=== PATIENT | female | born 1995 | race Caucasian/White ===

== ENCOUNTER 2025-05-23 05:23 | Inpatient (IN) ==
--- NOTE | 2025-05-14 16:28 | Anesthesiology Consultation ---
Date of Service May 14, 2025 Assessment & Plan (1) Encounter for pre-operative examination: - Patient reported cardiac murmur. No notation of cardiac evaluation from recent OB and endocrinology office notes. No available maternal echo. Case discussed in detail with Dr. Guy who advised patient can proceed as planned and nothing additional is needed prior to surgery pending assigned anesthesiologist qamar CALLOWAY. - h/o spinal tap headache requiring blood patch which was not beneficial after neuraxial anesthesia [place] [facility] [place]. - cardio notation 02/25/25: "...baby's heart appears normal...do not see any contraindication from a cardiac standpoint to her delivering at [facility]..." - Per territory development manager on 05/14/25: No known infectious disease contacts, current infectious disease symptoms in past 10 days or COVID positive test result in the past 30 days. Chart Review Chart Review: lead data entry operator initiated History Surgery Operation Date: 05/23/25 09:00 Proposed Procedures p Section (Delivery of Baby Through Abdominal Incision) - Rebecca rooney MD, FACOG s with Bilateral Tubal Ligation - Rebecca Cannon MD, FACOG Height/Weight Height: 5 ft 10 in Weight: 141.974 kg Allergies Allergy/AdvReac Type Severity Reaction Status Date / Time No Known Allergies Allergy Verified 05/14/25 15:47 Medications Home Medications Medication Instructions Recorded Confirmed Last Taken OneTouch Delica Plus Lancet 33 #400 ea 02/15/24 05/13/25 Unknown gauge (lancets) OneTouch Ultra Test (blood sugar #400 ea 02/15/24 05/13/25 Unknown diagnostic) pen needle, diabetic 32 gauge x #1,200 ea 07/12/24 05/13/25 Unknown 5/32" (1st Tier Unifine Pentips) blood-glucose sensor (Dexcom G7 #3 ea 07/15/24 05/13/25 Unknown Sensor device) prenat.vits,beverly,rvh-fclu-lieeu 1 tab PO DAILY 10/29/24 05/14/25 Unknown metformin 500 mg tablet,extended 1,000 mg (2 x 500 mg) PO BID #120 12/27/24 05/14/25 Unknown release 24 hr tabs aspirin 81 mg tablet 81 mg PO DAILY 05/14/25 05/14/25 Unknown famotidine 20 mg tablet (Pepcid) 20 mg PO DAILY 05/14/25 05/14/25 Unknown insulin glargine U-300 conc 300 160 unit subcut HS 05/14/25 05/14/25 Unknown unit/mL (3 mL) subcutaneous pen (Toujeo Max U-300 SoloStar) insulin lispro 200 unit/mL (3 mL) 100 - 120 unit subcut .WITH MEALS 05/14/25 05/14/25 Unknown subcutaneous pen (Humalog KwikPen U-200 Insulin) iron 1 tab PO Q2D 05/14/25 05/14/25 Unknown levothyroxine 200 mcg tablet 200 mcg PO QAM 05/14/25 05/14/25 Unknown (Synthroid) levothyroxine 50 mcg tablet 50 mcg PO QAM 05/14/25 05/14/25 Unknown (Synthroid) Past Medical History Medical History (Updated 05/14/25 @ 16:27 by Minerva Reinoso PA-C) Adverse effect of anesthesia 2020 - spinal headache, had a blood patch which failed - as per patient - [place] [facility] [place] Chronic hypertension with superimposed pre-eclampsia hx Diabetes mellitus, type 2 IDDM/Oral - [facility] GBS carrier Heart murmur History of chicken pox Hypothyroidism Insulin controlled gestational diabetes mellitus (GDM) during Mild preeclampsia hx Past Family History Family History Father Hypertension Mother Thyroid disease Denies family history of Ovarian cancer Breast cancer Colorectal cancer Past Surgical History Surgical History S/P carpal tunnel release Left S/P section Twins 2020 S/P wisdom tooth extraction Social History Smoking Status: Never smoker Do You Dip or Chew Tobacco: No Hx Alcohol Use: No Hx Substance Use: No substance use type: does not use Lab Results Anesthesia Preop Results Results Anesthesia Widget: WBC 10.21 K/ul (4.8-10.8) 05/13/25 Hgb 10.3 g/dl (12.0-16.0) L 05/13/25 Hct 32.3 % (37.0-47.0) L 05/13/25 Plt 286 K/uL (130-400) 05/13/25 Na 139 mmol/L (136-145) 05/13/25 K 3.7 mmol/L (3.5-5.1) 05/13/25 Cl 107 mmol/L (98-107) 05/13/25 CO2 22 mmol/L (21-32) 05/13/25 BUN 7 mg/dl (6-23) 05/13/25 Creat 0.65 mg/dl (0.6-1.2) 05/13/25 Glucose Level 70 mg/dl (70-99(Fasting)) 05/13/25 TSH 1.006 uIu/ml (0.300-4.500) 03/20/25 HA1c 5.4 % (4.5-5.6) 05/02/25 Urine Color Yellow 03/20/25 Urine Appearance Clear (Clear) 03/20/25 Urine pH 6.5 (4.5-7.5) 03/20/25 Urine Specific [place] 1.010 (1.000-1.030) 03/20/25 Urine Protein Negative (Negative) 03/20/25 Urine Glucose (UA) Negative (Negative) 03/20/25 Urine Ketones Negative (Negative) 03/20/25 Urine Blood Negative (Negative) 03/20/25 Urine Nitrite Negative (Negative) 03/20/25 Urine Bilirubin Negative (Negative) 03/20/25 Urine Urobilinogen Negative (Negative) 03/20/25 Urine Leukocyte Esterase Negative (Negative) 03/20/25 Testing Electrocardiogram Date: 11/25/24 NSR, rate 72 bpm Rightward axis
--- NOTE | 2025-05-22 22:47 | History & Physical Report ---
Date of Service May 22, 2025 Assessment & Plan (1) 38 weeks gestation of : (2) Previous delivery affecting , antepartum: (3) Chronic hypertension affecting : (4) Obesity affecting , antepartum: (5) Diabetes in : (6) Encounter for sterilization: Plan Will plan repeat c/s with tubal on day of admission. Consent reviewed and signed. Distal salpingectomies planned. Labs on day of admission. Plan dose 1/2 normal NPH bedtime dosing and npo after midnight. Routine pre, and postop care reviewed. History of Present Illness Chief Complaint: planned c/s and tubal. Primary Care Provider: Patrica Carrera PA-C 29yo (twins) at 38+wks ega for planned c/s and desires tubal with h/o CHTN and DM in . Denies rom, vb. +FM. No ctx. PNC c/b 1. Type 2 DM, normal growth u/s and testing, on insulin/metformin 2. CHTN, no meds 3. Hypothyroidism 4. Obesity 5. GBS carrier 6. Prior complicated by Preeclampsia 7. Polyhydramnios PNL rhpos, ri, gbs pos OBH: c/s x 3, twins were at 34wks/preeclampsia GYNH: nl paps, no stds Allergies Allergy/AdvReac Type Severity Reaction Status Date / Time No Known Allergies Allergy Verified 05/22/25 13:24 Home Medications Medication Instructions Recorded Confirmed Type OneTouch Delica Plus Lancet 33 #400 ea 02/15/24 05/22/25 Rx gauge (lancets) OneTouch Ultra Test (blood sugar #400 ea 02/15/24 05/22/25 Rx diagnostic) pen needle, diabetic 32 gauge x #1,200 ea 07/12/24 05/22/25 Rx 5/32" (1st Tier Unifine Pentips) blood-glucose sensor (Dexcom G7 #3 ea 07/15/24 05/22/25 Rx Sensor device) prenat.vits,beverly,xur-vxdq-ywcyj 1 tab PO DAILY 10/29/24 05/22/25 History metformin 500 mg tablet,extended 1,000 mg (2 x 500 mg) PO BID #120 12/27/24 Rx release 24 hr tabs aspirin 81 mg tablet 81 mg PO DAILY 05/14/25 05/22/25 History famotidine 20 mg tablet (Pepcid) 20 mg PO DAILY 05/14/25 05/22/25 History insulin glargine U-300 conc 300 160 unit subcut HS 05/14/25 05/22/25 History unit/mL (3 mL) subcutaneous pen (Toujeo Max U-300 SoloStar) insulin lispro 200 unit/mL (3 mL) 100 - 120 unit subcut .WITH MEALS 05/14/25 05/22/25 History subcutaneous pen (Humalog KwikPen U-200 Insulin) iron 1 tab PO Q2D 05/14/25 05/22/25 History levothyroxine 200 mcg tablet 200 mcg PO QAM 05/14/25 05/22/25 History (Synthroid) levothyroxine 50 mcg tablet 50 mcg PO QAM 05/14/25 05/22/25 History (Synthroid) Patient History Medical History (Updated 05/22/25 @ 22:53 by Rebecca Cannon MD, FACOG) Adverse effect of anesthesia 2020 - spinal headache, had a blood patch which failed - as per patient - [place] at [facility] [place] GBS carrier Heart murmur patient reports echo was done 5-7 years ago and was "normal" states murmur has not been heard for years Hypothyroidism Diabetes mellitus, type 2 IDDM/Oral - [facility] Chronic hypertension with superimposed pre-eclampsia hx Mild preeclampsia hx Insulin controlled gestational diabetes mellitus (GDM) during History of chicken pox Surgical History S/P carpal tunnel release Left S/P wisdom tooth extraction S/P section Twins 2020 Family History Father Hypertension Mother Thyroid disease Denies family history of Ovarian cancer Breast cancer Colorectal cancer Social History (Updated 10/29/24 @ 13:41 by Yoanna Mcbride) Smoking Status: Never smoker Second Hand Exposure: No; Do You Dip or Chew Tobacco: No; Hx Alcohol Use: No Hx Substance Use: No Preferred Language: Cymro Communication Ability: Effective Software Sales Executive Required: No Beliefs That Will Affect Care: None marital status: Single marital status details: Ray Dunkle [phone] Current Living Situation: Family Current Living Situation Comment: Lives with S.O., 3 children current occupational status: employed current occupation: [employer] Feels Safe at Home: Yes Assistive Devices: Other Review of Systems as per Subjective / HPI Physical Exam Constitutional: WD/WN, vitals as above Respiratory: normal respiratory effort, lungs clear to auscultation Cardiovascular: Rate/Rhythm: regular rate and regular rhythm Gastrointestinal (Abdomen): soft gravid nt obese nst reactive Musculoskeletal: tr edema nontender calves Neurologic: grossly normal Psychiatric: A+Ox3, euthymic affect Coding Level of Care Code None Diagnoses 38 weeks gestation of Z3A.38 Previous delivery affecting , antepartum O34.219 Chronic hypertension affecting O10.919 Obesity affecting , antepartum O99.210 Diabetes in O24.919 Encounter for sterilization Z30.2
[2025-05-23] MEDS: ACETAMINOPHEN 500 MG TAB PO SCH (06:13)
[2025-05-23] MEDS: LACTATED RINGER'S 1,000 ML IV SCH (06:14)
[2025-05-23 06:31] LABS: Hematocrit (blood only) 37.5 % (37.0-47.0); Hemoglobin 12.2 g/dl (12.0-16.0); Mean Corpuscular Hemoglobin 28.4 pg (25.0-34.0); Mean Corpuscular Volume 87.2 fL (80.0-100.0); Platelet Count 277 K/uL (130-400); RDW Standard Deviation 46.2 fL (36.4-46.3); Red Blood Count 4.30 M/uL (4.20-5.40); White Blood Count 11.64 K/ul (4.8-10.8)
[2025-05-23] MEDS ORDERED: OXYTOCIN 10 UNITS/ML VIAL ONE ×3 (06:34)
[2025-05-23] MEDS ORDERED: MoRPHine SULFATE PF 1 MG/ML 10 ML AMP/VIAL ONE (06:34)
[2025-05-23] MEDS ORDERED: PHENYLEPHRINE HCL 10 MG/ML VIAL ONE (06:35)
[2025-05-23] MEDS ORDERED: SODIUM CHLORIDE 0.9% 100 ML IV PRN (06:41)
[2025-05-23] MEDS ORDERED: LACTATED RINGER'S 1,000 ML IV SCH ×2 (07:00→08:30)
--- NOTE | 2025-05-23 07:19 | History & Physical Bridge Note ---
Date of Service May 23, 2025 History & Physical Bridge Note I have examined the patient, reviewed the History & Physical and in the interval since the performance of the History & Physical I have noted the following changes of clinical significance: no changes noted
[2025-05-23] MEDS: ceFAZolin 3000MG 3,000 MG/72.5 ML BAG IV SCH (07:32)
[2025-05-23] MEDS: CITRIC ACID/SODIUM CITRATE 15 ML UDC PO SCH (07:32)
[2025-05-23] MEDS ORDERED: DROPERIDOL 5 MG/2 ML VIAL IV PRN (07:52)
[2025-05-23] MEDS ORDERED: ONDANSETRON INJ 2 MG/ML 2 ML VIAL IV PRN (07:52)
[2025-05-23] MEDS ORDERED: HYDROmorphone INJ 0.5 MG/0.5 ML SYR IV PRN (07:52)
[2025-05-23] MEDS ORDERED: LACTATED RINGER'S 500 ML IV PRN (07:52)
[2025-05-23] MEDS ORDERED: NALOXONE HCL 0.4 MG/1 ML VIAL/CARP IV PRN (07:52)
[2025-05-23] MEDS ORDERED: diphenhydrAMINE 50 MG/ML VIAL IV PRN (07:52)
[2025-05-23] MEDS ORDERED: NALOXONE HCL 0.08 MG in SYRINGE 1.8 ML IV PRN (07:52)
[2025-05-23] MEDS ORDERED: MoRPHine SULFATE PF 1 MG/ML 10 ML AMP/VIAL INT SPINAL ONE (07:52)
[2025-05-23] MEDS ORDERED: NALOXONE HCL 1 MG in SODIUM CHLORIDE 0.9% 1,000 ML IV PRN (07:52)
[2025-05-23] MEDS ORDERED: SODIUM CHLORIDE 0.9% 1,000 ML IV SCH (08:00)
[2025-05-23] MEDS ORDERED: NO NARCOTICS OR SEDATIVES SCH (08:00)
[2025-05-23] MEDS ORDERED: SENNA 8.6 MG TAB PO PRN (08:30)
[2025-05-23] MEDS ORDERED: BENZOCAINE 20% SPRY 85 APPLN/85 GM CAN EXT PRN (08:30)
[2025-05-23] MEDS ORDERED: CALCIUM CARBONATE 500 MG CHEWABLE TAB PO PRN (08:30)
[2025-05-23] MEDS ORDERED: PHARMACY GLYCEMIC MGMT CONSULT PRN (08:30)
[2025-05-23] MEDS ORDERED: MAGNESIUM HYDROXIDE SUSP 30 ML UDC PO PRN (08:30)
[2025-05-23] MEDS ORDERED: HYDROCORTISONE ACETATE 25 MG SUPP PR PRN (08:30)
--- NOTE | 2025-05-23 08:41 | Operative Report ---
Post Operative Report Pre & Post Diagnosis Operation Date: 05/23/25 07:30 Pre-Op Diagnosis: 1. 38+wks iup 2. CHTN 3. DM in 4. Obesity 5. Prior section x2 6. Desires sterlization Post-Op Diagnosis: Same. I identified the patient and participated in the time-out.: Yes Procedure Operation Date: 05/23/25 07:30 <No data on this case meets the specified criteria> Repeat Low Transverse Section Tubal sterilization via bilateral salpingectomies Surgeon Rebecca Cannon MD, FACOG Automatic Blocker Courtney Quantitative Blood Loss (QBL) 187 Findings Consistent with Post-Op Diagnosis (viable male apgars 8,9. normal uterus tubes and ovaries bilaterally) Fluids 500cc Specimens bilateral fallopian tubes cord blood Drains díaz Anesthesia Type Spinal Complications none Disposition Accompanied Patient To Recovery: No Disposition: L&D Indications 29yo at 38wks with chtn, dm and prior c/s for planned repeat c/s and desires tubal. Description of Procedure The patient was taken to the operating room and identified. After adequate anesthesia was obtained, she was placed in the supine position with a leftward tilt on the operating table and prepped and draped in the usual sterile fashion. A díaz catheter had already been placed. The knife was used to create a Pfannensteil skin incision that was carried down to the underlying layer of fascia. The fascia was nicked in the midline and this opening was extended laterally using Terrell scissors. Lenny clamps were placed on the superior and inferior aspect of the fascial incision tenting it upward and the underlying rectus muscles were dissected off the overlying fascia both sharply and bluntly using Terrell scissors. The rectus muscles were bluntly in the midline. The peritoneal cavity was bluntly entered into. This opening was stretched. The bladder blade was placed. The vesicouterine peritoneum was elevated and opened up into and the bladder flap was created digitally and bladder blade was replaced. The knife was used to create a hysterotomy and this opening was stretched. The operators hand was placed through the hysterotomy and the bladder blade was removed. The head was elevated and flexed and with fundal pressure the head was delivered. The shoulders and body were rapidly delivered. The cord was clamped and cut and the 's mouth and nares were bulb suction. The was handed off to the awaiting pediatricians. Cord blood was obtained. The placenta was manually expressed. The uterus was exteriorized and cleared of all clots and debris. Dilute IV Pitocin was begun. The uterine tone was improving. The hysterotomy was closed in a running interlocking fashion using 0 Vicryl followed by a second layer of 0 Vicryl interrupted sutures. The hysterotomy was hemostatic. Bilateral fallopian tubes were identified and using the ligasure were resected and sent as specimens. The pelvis was suctioned. The uterus was returned to the abdomen. The gutters were cleared of all clots and debris. The hysterotomy was reinspected and noted to be hemostatic as were the tubal sites. The fascia was then closed in running fashion using 0 Vicryl. The subcutaneous fat was copiously irrigated and reapproximated using 2-0 chromic. The skin was closed in a subcuticular fashion using 4-0 monocryl. At this point the procedure was terminated. The patient was transferred to the recovery room in stable condition. All sponge, lap and needle counts are correct x2. I attest to the content of the Intraoperative Record and any orders documented therein. Any exceptions are noted below. OB Procedure Charges [id number] Add on Tubal for C/S
[2025-05-23] MEDS: DIPHTHER/TETAN/PERTUS Vaccine (Tdap, Adol/Adult) 0.5mL IM ONE (09:08)
[2025-05-23] MEDS: NALBUPHINE HCL INJ 10 MG/ML AMP IV PRN (09:08)
[2025-05-23] MEDS: KETOROLAC 30 MG/ML VIAL IV SCH (09:08)
[2025-05-23] MEDS: OXYTOCIN 20 UNITS/LR 1,002 ML IV SCH (09:09)
[2025-05-23] MEDS ORDERED: GLUCOSE 10 TAB/TUBE PO PRN (09:15)
[2025-05-23] MEDS ORDERED: CARBOHYDRATES FOR HYPOGLYCEMIA PO PRN (09:15)
[2025-05-23] MEDS ORDERED: GLUCOSE 40% GEL 15 GM TUBE PO PRN (09:15)
[2025-05-23] MEDS ORDERED: GLUCAGON FOR INJ 1 MG VIAL SQ PRN (09:15)
[2025-05-23] MEDS ORDERED: DEXTROSE 50% 50 ML SYRINGE IV PRN (09:15)
[2025-05-23] MEDS: INSULIN ASPART PER UNIT CHARGE SC SCH (09:48)
--- NOTE | 2025-05-23 13:19 | Pharmacy Report ---
Pharmacy Glycemic Short Note 2 - Date of Service May 23, 2025 - Glycemic Short BSG Results (Last 24 hours): 05/23/25 05/23/25 05/23/25 07:18 09:36 11:26 POC Glucose 103 H 105 H 105 H OUTPATIENT ANTIDIABETIC REGIMEN: * Insulin regimen during * Lantus 160 units SC HS * Humalog 90 units SC TIDM (270 units/day max) * Metformin 1000 mg PO BIDM HbA1c: 5.4% (05/02/25) ASSESSMENT: * EMILY is a 29 year old female now post delivery on 05/23/25 * Patient has history of T2DM with significant insulin needs while (although very well-controlled) * Outpatient notes reviewed and case discussed with Claudia Oates, RD, LDN, CDE who reports that patient was initiated on insulin in June of 2024 (Lantus 20 units and Novolog 5 units TIDM) * Blood sugar post has been well-controlled at 103 mg/dL and 105 mg/dL * Will be conservative and utilize Novolog only for today * Will monitor fasting blood sugars and add basal as warranted PLAN FOR INPATIENT GLYCEMIC CONTROL: * Hold outpatient oral diabetes medications * Basal insulin * Hold for now, reassess in AM * Bolus insulin * NovoLog per scale ACHS or Q6hrs while NPO * Goal Range: Low 110 mg/dL - High 140 mg/dL * Correction Factor: 45 mg/dL/unit * Nutritional / Prandial insulin per carb ratio of 1 unit per 15 grams CHO consumed
--- NOTE | 2025-05-23 13:23 | Anesthesiology Progress Note ---
Date of Service May 23, 2025 Anesthesia Post Procedure Vital Signs Vital Signs: Temp Pulse Pulse Resp BP BP Pulse Ox 05/23/25 11:00 36.8 C 80 16 129/72 97 05/23/25 10:48 36.8 C 84 18 144/80 H 96 05/23/25 10:21 75 97 05/23/25 10:18 36.7 C 81 18 122/58 L 97 05/23/25 10:18 76 122/58 L 05/23/25 10:16 79 98 05/23/25 10:11 80 97 05/23/25 10:08 86 115/57 L 05/23/25 10:07 86 94 05/23/25 10:06 83 96 05/23/25 10:01 89 98 05/23/25 09:58 107 H 135/76 05/23/25 09:56 93 H 98 05/23/25 09:51 87 98 05/23/25 09:48 36.6 C 75 16 129/60 99 05/23/25 09:48 75 129/60 05/23/25 09:46 81 98 05/23/25 09:41 77 98 05/23/25 09:38 36.6 C 85 18 119/57 L 98 05/23/25 09:38 82 119/57 L 05/23/25 09:36 77 98 05/23/25 09:31 84 98 05/23/25 09:28 36.7 C 77 16 113/57 L 98 05/23/25 09:28 77 113/57 L 05/23/25 09:26 86 98 05/23/25 09:21 91 H 98 05/23/25 09:18 36.7 C 87 18 107/55 L 96 05/23/25 09:18 81 107/55 L 05/23/25 09:16 91 H 97 05/23/25 09:11 90 99 05/23/25 09:08 36.6 C 93 H 18 104/51 L 99 05/23/25 09:08 93 H 104/51 L 05/23/25 09:06 91 H 97 05/23/25 09:01 90 99 05/23/25 08:58 36.6 C 78 16 111/56 L 99 05/23/25 08:58 88 111/56 L 05/23/25 08:56 88 98 05/23/25 08:54 84 93 05/23/25 08:51 83 98 05/23/25 08:48 36.7 C 78 18 112/53 L 97 05/23/25 08:46 79 112/53 L 96 05/23/25 07:10 05/23/25 07:07 86 145/71 H 05/23/25 05:59 37.0 C 16 05/23/25 05:44 91 H 137/76 O2 Del Method 05/23/25 11:00 Room Air 05/23/25 10:48 05/23/25 10:21 05/23/25 10:18 05/23/25 10:18 05/23/25 10:16 05/23/25 10:11 05/23/25 10:08 05/23/25 10:07 05/23/25 10:06 05/23/25 10:01 05/23/25 09:58 05/23/25 09:56 05/23/25 09:51 05/23/25 09:48 05/23/25 09:48 05/23/25 09:46 05/23/25 09:41 05/23/25 09:38 05/23/25 09:38 05/23/25 09:36 05/23/25 09:31 05/23/25 09:28 05/23/25 09:28 05/23/25 09:26 05/23/25 09:21 05/23/25 09:18 05/23/25 09:18 05/23/25 09:16 05/23/25 09:11 05/23/25 09:08 05/23/25 09:08 05/23/25 09:06 05/23/25 09:01 05/23/25 08:58 05/23/25 08:58 05/23/25 08:56 05/23/25 08:54 05/23/25 08:51 05/23/25 08:48 05/23/25 08:46 05/23/25 07:10 Room Air 05/23/25 07:07 05/23/25 05:59 05/23/25 05:44 Pain Intensity Lower Abdomen: Pain Intensity: 0 Notes Mental Status: alert / awake / arousable Patient Amnestic to Procedure: Yes Nausea / Vomiting: adequately controlled Pain: adequately controlled Airway Patency, RR, SpO2: stable & adequate BP & HR: stable & adequate Hydration State: stable & adequate Neuraxial Anesthesia: was administered and sensory block is resolving Anesthetic Complications: no major complications apparent
[2025-05-23] MEDS: ACETAMINOPHEN 325 MG TAB PO SCH (14:13)
[2025-05-23] MEDS: SIMETHICONE 80 MG CHEW PO SCH (14:13)
[2025-05-23] MEDS: DOCUSATE SODIUM 100 MG CAP PO SCH (21:09)
[2025-05-24] MEDS ORDERED: diphenhydrAMINE 50 MG/ML VIAL IV PRN (01:52)
[2025-05-24] MEDS ORDERED: HYDROmorphone INJ 0.5 MG/0.5 ML SYR IV PRN (01:52)
[2025-05-24] MEDS ORDERED: PROMETHAZINE 12.5 MG/50.5 ML BAG IV PRN (01:52)
[2025-05-24] MEDS ORDERED: diphenhydrAMINE Capsule 25 MG CAP PO PRN (01:52)
[2025-05-24] MEDS ORDERED: ONDANSETRON INJ 2 MG/ML 2 ML VIAL IV PRN (01:52)
[2025-05-24] MEDS: LEVOTHYROXINE SODIUM 200 MCG TABLET PO SCH (05:55)
--- NOTE | 2025-05-24 06:41 | Obstetrical Progress Note ---
Date of Service May 24, 2025 Assessment & Plan (1) care and examination: Plan stable, doing well, routine care. rhpos, ri, . hgb pending. pain control good. Subjective Ambulation: ambulating normally Voiding: no voiding problems Passing Gas:: Yes Diet Tolerance:: regular diet Lochia:: Small Feeding Type:: breast feeding no pain control issues. . Constitutional: + as per Subjective / HPI Physical Exam Constitutional WD/WN, vitals as above Respiratory normal respiratory effort, lungs clear to auscultation Cardiovascular Rate/Rhythm: regular rate and regular rhythm Gastrointestinal (Abdomen) Inspection/Auscultation: abdomen normal to inspection and + abdominal surgical incision (c/d/i) Percussion/Palpation: abdomen soft Fundus firm 2cm down Musculoskeletal nt calves tr edema Neurologic grossly normal Psychiatric A+Ox3, euthymic affect Results & Data Vital Signs (Past 12 Hours) Vital Signs Temp Pulse Pulse Resp BP Pulse Ox O2 Del Method 05/24/25 03:00 97.9 F 88 18 126/67 96 Room Air 05/24/25 01:15 18 93 05/24/25 00:30 18 93 05/23/25 23:45 18 98 05/23/25 23:45 97.9 F 90 18 133/76 98 Room Air 05/23/25 22:20 20 98 05/23/25 21:20 97.9 F 76 20 152/76 H 98 Room Air 05/23/25 21:15 20 98 05/23/25 19:20 20 98
[2025-05-24 07:20] LABS: Hematocrit (blood only) 28.3 % (37.0-47.0); Hemoglobin 9.4 g/dl (12.0-16.0); Immature Granulocytes # (auto) 0.03 K/uL (0.01-0.20); Immature Granulocytes % (auto) 0.3 %; Mean Corpuscular Hemoglobin 28.8 pg (25.0-34.0); Mean Corpuscular Volume 86.8 fL (80.0-100.0); Platelet Count 224 K/uL (130-400); RDW Standard Deviation 46.5 fL (36.4-46.3); Red Blood Count 3.26 M/uL (4.20-5.40); White Blood Count 9.73 K/ul (4.8-10.8)
[2025-05-24] MEDS: IBUPROFEN 600 MG TAB PO SCH (08:14)
[2025-05-24] MEDS: PRENATAL VITAMIN 1 TAB PO SCH (08:14)
[2025-05-24] MEDS: FERROUS SULFATE 325 MG TAB PO SCH (08:15)
[2025-05-24] MEDS ORDERED: KETOROLAC 30 MG/ML VIAL IV PRN (08:18)
[2025-05-25 02:59] VITALS: RESP 16; O2SAT 95
--- NOTE | 2025-05-25 07:19 | Obstetrical Progress Note ---
Date of Service May 25, 2025 Assessment & Plan (1) care and examination: All questions were answered incision was inspected and found to be clean dry and intact extremity exam was negative for tenderness patient has no significant depressive symptoms Postoperative from section patient meets discharge criteria as she is ambulating well tolerating an oral diet has minimal bleeding and no extremity pain. Discharge instructions were reviewed and prescriptions were sent to her pharmacy of choice patient advised to call with any concerns and follow-up in the office discussed. Subjective Ambulation: ambulating normally Voiding: no voiding problems Passing Gas:: Yes Diet Tolerance:: regular diet Lochia:: Small Physical Exam Constitutional WD/WN, vitals as above well developed and well nourished Respiratory normal respiratory effort, lungs clear to auscultation normal respiratory effort Cardiovascular RRR, no murmur, no edema Gastrointestinal (Abdomen) normal bowel sounds, soft, nontender, no hepatosplenomegaly Results & Data Vital Signs (Past 12 Hours) Vital Signs Temp Pulse Resp BP Pulse Ox O2 Del Method 05/25/25 02:45 97.7 F 85 16 110/62 95 Room Air 05/24/25 19:20 98.4 F 89 18 124/82 97 Room Air
[2025-05-25 08:08] LABS: Hematocrit (blood only) 30.8 % (37.0-47.0); Hemoglobin 9.9 g/dl (12.0-16.0)
[2025-05-25] MEDS: IBUPROFEN 600 MG TAB PO PRN (08:21)
[2025-05-25 09:00] VITALS: BP 129/83; PULSE 74; TEMP 98.2
[2025-05-25] MEDS ORDERED: ACETAMINOPHEN 325 MG TAB PO PRN (14:18)
--- NOTE | 2025-05-27 15:27 | Discharge Summary ---
Date of Service May 27, 2025 Admission HPI Per Admitting Provider 29yo (twins) at 38+wks ega for planned c/s and desires tubal with h/o CHTN and DM in . Denies rom, vb. +FM. No ctx. PNC c/b 1. Type 2 DM, normal growth u/s and testing, on insulin/metformin 2. CHTN, no meds 3. Hypothyroidism 4. Obesity 5. GBS carrier 6. Prior complicated by Preeclampsia 7. Polyhydramnios PNL rhpos, ri, gbs pos OBH: c/s x 3, twins were at 34wks/preeclampsia GYNH: nl paps, no stds Discharge Data Consultations 05/23/25 05:49 Consult Anesthesiology Stat Procedures Performed Operation Date: 05/23/25 07:30 Actual Procedures Repeat Low Transverse Section Tubal sterilization via bilateral salpingectomies Hospital Course (1) care and examination: The patient underwent the above stated procedure without incident and her postoperative course and recovery was uncomplicated. On her postoperative day #2 she was tolerating a regular diet, voiding spontaneously, ambulating without problem and was using oral meds for adequate pain control. Her postoperative hemoglobin was 9.9. She was given written and verbal discharge instructions and told to followup in office at 6wks. She was given appropriate pain medicine prescriptions. Coding Level of Care Code None Diagnoses care and examination Z39.2
== END 2025-05-25 10:40 | disposition home or self-care (01) | DRG 783 ==
LOC: 4S1 05:23 → EDSTATUS 09:00 → 4E1 10:28
PROC: M.PPTLD (2025-05-23 07:30)